=== PATIENT | male | born 1970 | race Caucasian/White ===

== ENCOUNTER 2022-05-03 15:56 | Emergency (ER) | payer OTHER, MEDICAID, SELFPAY ==
[2022-05-03 16:15] VITALS: BP 118/75; PULSE 95; RESP 18; TEMP 36.6; O2SAT 98
--- NOTE | 2022-05-03 16:20 | DI.RAD.S_ITS ---
PROCEDURE: XR CHEST 2V INDICATIONS: Cough TECHNIQUE: 2 views of the chest were acquired. COMPARISON: None. FINDINGS: Surgical changes and devices: None. Lungs and pleura: Lungs are clear. No pleural effusions or pneumothorax. Mediastinum: Mediastinal contours are normal. Heart size is normal. Bones and chest wall: No suspicious bony abnormalities. Soft tissues appear unremarkable. IMPRESSION: No acute cardiopulmonary process demonstrated radiographically. Dictated by: Byron Reyna M.D. on 05/03/2022 at 17:31 Approved by: Byron Reyna M.D. on 05/03/2022 at 17:31
[2022-05-03 16:50] LABS: Add Manual Diff / Slide Review NO; Basophils Absolute Auto 100 /uL (0-100); Basophils Percent Auto 1.1 % (0-2); Eosinophils Absolute Auto 300 /uL (0-450); Hematocrit 42.9 % (41-53); Hemoglobin 14.9 g/dL (13.5-17.5); Lymphocytes Absolute Auto 2500 /uL (1100-4500); Lymphocytes Percent Auto 31.6 % (25-40); Mean Corpuscular HGB Conc 34.7 % (30-36); Mean Corpuscular Hemoglobin 31.8 PG (26-34); Mean Corpuscular Volume 91.6 fL (80-100); Monocytes Absolute Auto 1000 /uL (0-900); Monocytes Percent Auto 12.5 % (3-14); Neutrophils Absolute Auto 4000 /uL (1500-7000); Neutrophils Percent Auto 50.8 % (50-75); Platelet Count 326 X10^3/uL (150-400); Red Blood Cell Count 4.69 X10^6/uL (4.5-5.9); Red Cell Distribution Width 13.5 % (11.6-14.8); White Blood Cell Count 7.8 X10^3/uL (4.5-11.0)
[2022-05-03 17:05] LABS: Alanine Aminotransferase 21 IU/L (<50); Albumin 4.3 g/dL (3.5-5.0); Albumin Globulin Ratio 1.4 (1.0-2.8); Alkaline Phosphatase 116 U/L (38-126); Aspartate Aminotransferase 32 IU/L (17-59); Bilirubin Total 0.4 mg/dL (0.2-1.3); Blood Urea Nitrogen 12 mg/dL (9-20); Calcium 8.8 mg/dL (8.4-10.2); Carbon Dioxide 26 mmol/L (22-32); Chloride 106 mmol/L (98-107); Creatine Kinase 260 U/L (55-170); Estimated Glomerular Filt Rate > 60 mL/min (>60); Glucose 123 mg/dL (70-100); HEMOLYSIS 20 (0-50); Lipase 161 U/L (23-300); Magnesium 2.2 mg/dL (1.6-2.3); Potassium 4.3 mmol/L (3.4-5.1); Sodium 137 mmol/L (137-145); Total Protein 7.3 g/dL (6.3-8.2)
[2022-05-03 17:16] LABS: Troponin I < 0.012 ng/mL (0.01-0.034)
[2022-05-03 17:20] LABS: CKMB % Relative Index 0.4 % (1.5-5.0)
[2022-05-03 17:23] LABS: Influenza A - CEPHEID Flu A NEGATIVE (NEGATIVE); Influenza B - CEPHEID Flu B NEGATIVE (NEGATIVE); Respiratory Syncytial Virus Negative (Negative)
[2022-05-03 18:07] LABS: COVID-19 CEPHEID PCR (VTM/NP) Negative (Negative)
== END 2022-05-03 20:04 | disposition left against medical advice (07) ==
PROVIDERS: Emergency Medicine; Emergency Provider Emergency Medicine; Family Provider Family Medicine; PCP Family Medicine
DX: R05.9 Cough, unspecified (principal); R07.9 Chest pain, unspecified; Z20.822 Contact with and (suspected) exposure to COVID-19
CPT/HCPCS: 0241U; 36415; 71046; 80053; 82550; 82553; 83690; 83735; 84484; 85025; 93005; 93010; 99283

== ENCOUNTER 2022-05-04 14:44 | Emergency (ER) | payer OTHER, MEDICAID, SELFPAY ==
[2022-05-04 15:05] VITALS: BP 145/77; PULSE 96; RESP 24; TEMP 36.4; O2SAT 97
--- NOTE | 2022-05-04 15:10 | DI.RAD.S_ITS ---
PROCEDURE: XR RIBS LT MIN 3V W CXR1V INDICATIONS: worsening rib pain/tenderness no known injury TECHNIQUE: 3 views of the left ribs were acquired, along with a single view chest. COMPARISON: None. FINDINGS: Surgical changes and devices: None. Bones and chest wall: No fractures or dislocations. No suspicious bony lesions. Overlying soft tissues appear unremarkable. Lungs and pleura: No pleural effusions or pneumothorax. Lungs appear clear. Mediastinum: Mediastinal contours appear normal. Heart size is normal. IMPRESSION: No evidence of rib fracture, pneumothorax or pleural effusion. No acute cardiopulmonary findings Approved by: Ceferino Mi M.D. on 05/04/2022 at 14:46
--- NOTE | 2022-05-17 09:07 | ED.RECABL ---
HPI - Recheck/Abnormal Lab/Rx <Vincent Yanes PA-C - Last Filed: 05/17/22 09:18> General Chief Complaint: Recheck/Abnormal Lab/Rx Stated Complaint: RIGHT SIDE RIB PAIN Time Seen by Provider: 05/04/22 18:54 Source: patient Mode of arrival: Ambulatory History of Present Illness HPI narrative: 52-year-old male presents to the ED with 1 week of left-sided rib pain. Patient states that he has been coughing for the last week, which caused his left side lower ribs to hurt. Patient denies trauma. Patient is a daily smoker. Patient endorses that the pain is reproducible when he pushes on his lower ribs. Patient denies chest pain, shortness of breath, fever, chills, nausea, vomiting, lightheadedness, dizziness, syncope. Patient presented to the ED yesterday, however left without being seen since he had to catch a [place]. Chest x-ray from yesterday was without acute findings. Related Data Home Medications Medication Instructions Recorded Confirmed No Known Home Medications 05/03/22 05/03/22 Allergies Allergy/AdvReac Type Severity Reaction Status Date / Time acetaminophen [From VICODIN] Allergy Mild ITCHING Verified 05/03/22 16:18 hydrocodone [From VICODIN] Allergy Mild ITCHING Verified 05/03/22 16:18 tramadol [TRAMADOL] Allergy Mild HEADACHE, Verified 05/03/22 16:18 PAIN AT BASE OF SKULL Review of Systems <Vincent Yanes PA-C - Last Filed: 05/17/22 09:18> Review of Systems ROS Unobtainable: All systems reviewed & are unremarkable except as noted in HPI and below Constitutional Constitutional: Denies chills, Denies fatigue, Denies fever(s), Denies frequent falls, Denies lethargy and Denies weakness Eyes Eyes: Denies change in vision, Denies eye discharge, Denies irritation and Denies loss of vision ENT Ears, Nose, Mouth, and Throat: Denies change in voice, Denies dizziness, Denies neck pain, Denies sore throat and Denies throat swelling Cardiovascular Cardiovascular: Denies chest pain, Denies irregular heart rhythm, Denies lightheadedness, Denies palpitations, Denies dyspnea, Denies dyspnea on exertion and Denies orthopnea Respiratory Respiratory: Denies cough, Denies dyspnea, Denies dyspnea on exertion and Denies wheezing Gastrointestinal Gastrointestinal: Denies abdominal pain, Denies change in bowel habits, Denies diarrhea, Denies nausea and Denies vomiting Genitourinary Genitourinary: Denies hematuria, Denies flank pain, Denies urinary incontinence and Denies urinary urgency Musculoskeletal Musculoskeletal: Denies back pain, Denies muscle weakness, Denies neck pain, Denies numbness and Denies tingling Comments: Left-sided rib pain Integumentary/Breasts Skin/Breast: Denies pruritus, Denies erythema, Denies rash and Denies wounds Neurologic Neurologic: Denies behavioral changes, Denies confusion, Denies dizziness, Denies frequent falls, Denies loss of vision, Denies numbness, Denies tingling and Denies weakness Psychiatric Psychiatric: Denies anxiety, Denies behavioral changes, Denies confusion, Denies depression, Denies homicidal ideation and Denies suicidal ideation Endocrine Endocrine: Denies fatigue, Denies flushing and Denies palpitations Hematologic/Lymphatic Hematologic/Lymphatic: Denies easy bruising Allergic/Immunologic Allergic/Immunologic: Denies urticaria, Denies throat swelling and Denies wheezing Patient History <Vincent Yanes PA-C - Last Filed: 05/17/22 09:18> Social History Smoking Status: Current every day smoker Smoking Status: Current every day smoker tobacco type: cigarettes alcohol intake frequency: 0-2 drinks per day Substance Use Type: marijuana Exam <Vincent Yanes PA-C - Last Filed: 05/17/22 09:18> Narrative Exam Narrative: Const General:?cooperative, healthy appearing and comfortable [facility] Head:?normal to inspection Ears:?hearing grossly normal bilaterally Nose:?external nose normal Face and sinus:?normal facial exam and sinuses nontender Mouth:?oral mucosae normal Throat:?posterior oropharynx normal Eyes General:?appearance normal, both eyes and all related structures Neck Neck:?normal visual inspection and no lymphadenopathy noted Resp Effort & Inspection:?normal respiratory effort Auscultation:?clear to auscultation bilaterally Cardio Rate:?regular rate Rhythm:?regular rhythm Musculoskeletal Tenderness to palpation of left lower ribs with anteroposterior palpation. No bruising, deformities Neuro General:?patient alert, patient awake and patient oriented x3 Initial Vital Signs Initial Vital Signs: Vital Signs Temperature 97.5 F L 05/04/22 15:05 Pulse Rate 96 H 05/04/22 15:05 Respiratory Rate 24 05/04/22 15:05 Blood Pressure 145/77 H 05/04/22 15:05 Pulse Oximetry 97 05/04/22 15:05 Oxygen Delivery Method 05/04/22 15:05 Const General: cooperative [facility] Head: normocephalic and atraumatic Ears: external ears normal and TM's normal bilaterally Nose: external nose normal and No nasal discharge Face and sinus: sinuses nontender, face symmetric, no sinus tenderness and No dry mucous membranes Mouth: oral mucosae normal and moist mucous membranes Teeth and gingiva: dentition normal Throat: tonsils normal and uvula midline Eyes General: Yes appearance normal, both eyes and all related structures Eyelids: eyelids normal Conjunctivae: conjunctivae normal Sclera: sclerae normal Pupils: PERRL EOM: EOM intact bilaterally Neck Neck: normal visual inspection, trachea midline, No lymphadenopathy, No midline deformity and No JVD Lymphatic: No lymphedema Chest Chest: normal inspection of the chest Resp Effort & Inspection: normal respiratory effort, able to speak in complete sentences, no respiratory distress and no use of accessory muscles Auscultation: clear to auscultation bilaterally, no rales, no rhonchi and no wheezes Cardio Rate: regular rate Rhythm: regular rhythm Heart Sounds: no click, no gallops, no murmurs and no rubs Pulses: normal peripheral pulses GI Inspection: non-distended Palpation: soft, no hepatosplenomegaly, No guarding, No pulsatile mass and No tender Auscultation: normal bowel sounds Back/Spine/Pelvis Back: No CVA tenderness Cervical Spine: cervical ROM normal and No pain with cervical ROM Thoracic/Lumbar Spine: thoracic and lumbar spine normal to inspection Skin General: no rashes or lesions noted, No jaundice and No petechiae Neuro General: patient alert, patient oriented x3, gait normal and no focal motor deficits Speech: speech normal Extrem General: full ROM, no clubbing, cyanosis or edema, no pedal edema and no calf tenderness Psych Appearance: well kempt Mental Status: mental status grossly normal Attitude: cooperative Thought Content: normal and suicidality Judgment: judgment good <Alma Garcia, DO - Last Filed: 06/07/22 13:36> Initial Vital Signs Initial Vital Signs: Vital Signs Temperature 97.5 F L 05/04/22 15:05 Pulse Rate 96 H 05/04/22 15:05 Respiratory Rate 24 05/04/22 15:05 Blood Pressure 145/77 H 05/04/22 15:05 Pulse Oximetry 97 05/04/22 15:05 Oxygen Delivery Method 05/04/22 15:05 MDM - Recheck/Abnormal Lab/Rx <Vincent Yanes PA-C - Last Filed: 05/17/22 09:18> Imaging Data Rib x-ray: Radiologist's Impression: PROCEDURE:? XR RIBS LT MIN 3V W CXR1V ? INDICATIONS:? worsening rib pain/tenderness no known injury ? TECHNIQUE:? 3 views of the left ribs were acquired, along with a single view chest.? ? COMPARISON:? None. ? FINDINGS:? ? Surgical changes and devices:? None.? ? Bones and chest wall:? No fractures or dislocations.? No suspicious bony lesions.? Overlying soft tissues appear unremarkable.? ? Lungs and pleura:? No pleural effusions or pneumothorax.? Lungs appear clear.? ? Mediastinum:? Mediastinal contours appear normal.? Heart size is normal.? ? IMPRESSION:? No evidence of rib fracture, pneumothorax or pleural effusion.? No acute cardiopulmonary findings ? ? ? Approved by: Ceferino Mi M.D. on 05/04/2022 at 14:46? Chest x-ray: Radiologist's Impression: PROCEDURE:? XR CHEST 2V ? INDICATIONS:? Cough ? TECHNIQUE:? 2 views of the chest were acquired.? ? COMPARISON:? None. ? FINDINGS:? ? Surgical changes and devices:? None.? ? Lungs and pleura:? Lungs are clear.? No pleural effusions or pneumothorax.? ? Mediastinum:? Mediastinal contours are normal.? Heart size is normal.? ? Bones and chest wall:? No suspicious bony abnormalities.? Soft tissues appear unremarkable.? ? IMPRESSION:? No acute cardiopulmonary process demonstrated radiographically. ? ? Dictated by: Byron Reyna M.D. on 05/03/2022 at 17:31 ? ? Approved by: Byron Reyna M.D. on 05/03/2022 at 17:31 ? [facility] Narrative Medical decision making narrative: 52-year-old male presents to the ED with 1 week of left-sided rib pain. Concern for rib fracture versus musculoskeletal sprain/strain. Patient's pain is reproducible with anteroposterior palpation, unlikely PE. Performed a rib x-ray that was without acute findings. Patient discharged home with supportive care with ibuprofen and Tylenol. ED return precautions were discussed with patient. Patient verbalized understanding. Discharge Plan Departure Patient Disposition: Home Clinical Impression: Rib pain Instructions: DI for Rib Contusion Activity Restrictions/Additional Instructions: You were evaluated in the ED today for ledt sided rib pain. Your chest x-ray from yesterday, and your rib xrays from today were normal. Your symptoms are likely due to a rib contusion. You may take ibuprofen and Tylenol for your symptoms. Return to the ED if you experience worsening pain, shortness of breath, abdominal pain, chest pain, light headedness. Prescriptions: No Action No Known Home Medications Referrals: Ramesh Goldman MD [Primary Care Provider] - Visit Report Forms: Patient Portal/API <Alma Garcia DO - Last Filed: 06/07/22 13:36> Cosign ED Attending Cosjuanature Attestation: I was immediately available in the department for consultation. Documentation has been reviewed.
== END 2022-05-04 19:33 | disposition home or self-care (01) ==
PROVIDERS: Emergency Provider Student in an Organized Health Care Education/Training Program; Family Provider Family Medicine; PCP Family Medicine
DX: Z53.21 Procedure and treatment not carried out due to patient leaving prior to being seen by health care provider (principal); R07.81 Pleurodynia
CPT/HCPCS: 71101; 99281